=== PATIENT | male | born 1935 | race Caucasian/White ===

== ENCOUNTER → 2017-12-02 09:41 | Outpatient (CLI) | payer MEDICARE, OTHER, SELFPAY ==
--- NOTE | 2017-12-02 09:44 | DI.CT.S_ITS ---
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 TECHNIQUE: After the administration of oral and intravenous contrast, 5 mm thick sections acquired from the lung apices to the symphysis. 5 mm coronal and sagittal reformats were performed, with additional 7 mm coronal MIP reformats through the lungs. For radiation dose reduction, the following was used: automated exposure control, adjustment of mA and/or kV according to patient size. COMPARISON: [facility], CT, CHEST/ABD/PEL WITH CONTRAST, 09/20/2016, 16:04. [facility], CT, CHEST/ABD/PEL WITH CONTRAST, 05/13/2016, 10:34. [facility], [place], PET/CT SKULL BASE TO MID THIGH, 12/08/2015, 10:00. [facility], CT, ABDOMEN/PELVIS WITH CONTRAST, 11/12/2015, 16:32. FINDINGS: Image quality: Excellent. CHEST: Lungs and pleura: No acute airspace opacities. No pleural effusions or pneumothorax. Central and peripheral airways appear patent and normal in caliber. Mediastinum: Heart size is normal. No pericardial effusion. No mediastinal or hilar adenopathy by size criteria. Thoracic aorta and central pulmonary arteries are normal in size. Esophagus is normal in caliber. No hiatal hernia. Chest wall: Left chest wall Port-A-Cath is again noted. No axillary or supraclavicular adenopathy by size criteria. Thyroid gland is normal in size. ABDOMEN: Solid organs: Liver is normal in size and enhancement. Gallbladder wall thickness is normal. Biliary system is non dilated. Pancreas enhances normally. Spleen is normal in size and enhancement. No adrenal nodules. Kidneys demonstrate normal size and enhancement, without hydronephrosis. Small bilateral renal cortical cysts are incidentally noted. Peritoneum and bowel: Bowel loops demonstrate normal wall thickness and caliber. The appendix appears normal. There is mild sigmoid colon diverticulosis. No free fluid or air. Nodes and vessels: No retroperitoneal or mesenteric adenopathy by size criteria. Aorta and inferior vena cava are normal in size. Miscellaneous: No ventral hernias. PELVIS: Genitourinary: Bladder wall thickness is normal. Prostate gland is normal in overall size. Miscellaneous: No inguinal hernias or adenopathy. Bones: No suspicious bony lesions. No vertebral body compression fractures. There is lumbar spine disc degeneration. IMPRESSION: 1. No new imaging findings to suggest recurrent follicular lymphoma. 2. Mild sigmoid colon diverticulosis. Dictated by: Srinivas Wesley M.D. on 12/02/2017 at 12:56 Approved by: Srinivas Wesley M.D. on 12/02/2017 at 13:09
== END ==
PROVIDERS: PCP Internal Medicine Cardiovascular Disease; Visit Provider Nurse Practitioner Gerontology
DX: C82.90 Follicular lymphoma, unspecified, unspecified site (principal); K57.30 Diverticulosis of large intestine without perforation or abscess without bleeding; Z53.8 Procedure and treatment not carried out for other reasons
CPT/HCPCS: 71260; 74177

== ENCOUNTER 2018-06-26 09:05 | Day surgery (SDC) | payer MEDICARE, OTHER, SELFPAY ==
[2018-06-26] VITALS (9 sets, daily range): BP systolic 85–123; BP diastolic 48–72; PULSE 49–62; RESP 8–17; TEMP 36.1–36.4; O2SAT 99–100
[2018-06-26] MEDS: SODIUM CHLORIDE 0.9% 1,000 ML 200 ML IV (09:45)
[2018-06-26] MEDS: LIDOCAINE 4% SOLN 50 ML 20 ML TOP (11:31)
[2018-06-26] MEDS: TETRACAINE/BENZOCAINE/BUTAMBEN (CETACAINE) BOTTLE 1 SPRAY TOP (11:32)
--- NOTE | 2018-06-26 11:33 | PM.HP.1 ---
History of Present Illness Date Patient Seen: 06/26/18 Time Patient Seen: 11:33 Chief complaint: colonoscopy [id number] Narrative: Patient is a gentleman with a follicular lymphoma. This was diagnosed in 2016. He has undergone treatment. He had a PET scan as part of his routine follow-up and there was some abnormalities in the small and large bowel. He has been having some vague abdominal pain is not as chronic reflux I was asked to do an EGD and colonoscopy. Patient History Family & Social History Family History: Reviewed 06/26/18 by Marlo Sanderson MD Social History: household members spouse Meds Home Medications Medication Instructions Recorded Confirmed Type multivitamin [Multiple Vitamins] 1 tab PO QDAY #0 04/23/17 06/26/18 History VITAMIN D (Vitamin D3) 5,000 iu PO QDAY #0 08/13/17 06/26/18 History vitamin B complex 1 tab PO DAILY 04/27/18 06/26/18 History Allergies Allergy/AdvReac Type Severity Reaction Status Date / Time No Known Drug Allergies Allergy Verified 10/02/17 14:11 Review of Systems Review of Systems All systems reviewed & are unremarkable except as noted in HPI and below Exam Vital Signs (past 8 hours): - 06/26/18 09:29 Temperature 97.2 F L Pulse Rate 57 L Respiratory Rate 15 Blood Pressure 111/69 Pulse Oximetry 100 Oxygen Delivery Method Room Air Narrative Exam Narrative: Within cooperative gentleman no apparent distress. Lungs are clear to auscultation without rales or rhonchi. Heart regular rate and rhythm without murmur gallop. Abdomen is soft nontender without mass. Liver and spleen are not enlarged. Alert and oriented x3. Assessment & Plan Plan: Assessment/Plan Narrative: Patient with follicular lymphoma and abdominal symptoms for an EGD and colonoscopy. I have discussed the procedure and the rationale with the patient including risks of bleeding, perforation which would necessitate a major operation, failure to find remove all lesions and the potential to tattoo. They appeared to understand and wished to proceed.
--- NOTE | 2018-06-26 11:38 | PM.PREOP ---
Pre-operative Note Interval Note History & Physical reviewed/Exam performed by Physician: Yes Changes to H&P: No ASA Class (for procedural sedation): II
[2018-06-26] MEDS: fentaNYL 250 MCG/5 ML INJ IV (11:39)
[2018-06-26] MEDS: MIDAZOLAM 5 MG/5 ML VIAL IV ×2 (12:02→12:03)
--- NOTE | 2018-06-26 12:16 | PM.OP.ENDO ---
Operative Date/Time/Diagnoses Date of procedure: 06/26/18 Time of procedure: 12:16 Pre-op diagnosis: Mantle cell lymphoma. Abnormal PET scan Post-op diagnosis: same Procedure & Clinicians Study performed: EGD and colonoscopy Same procedure as scheduled: Yes Indications: Rule out GI tract issues. Surgeon: Marlo Sanderson Procedure Notes SCOAP/Timeout: Performed Procedure in detail: The patient is placed in the left lateral decubitus position after having topical anesthetic applied was oropharynx. Bite block was inserted after sedating him with fentanyl and Versed. Scope was advanced through it into the esophagus the esophagus was normal. GE junction 42 cm from the incisors. The stomach insufflated well. There were no lesions seen. The pyloric channel was patent. The duodenum was unremarkable to the 4th part. The scope was brought back into the stomach and retroflexed. The proximal stomach was unremarkable. The scope was straightened and brought out. The patient was repositioned and given additional sedation. A colonoscopy was performed. Digital exam was remarkable for or an enlarged hard prior irregular prostate. The scope was inserted and advanced through the rectum into the sigmoid, descending, transverse, and ascending colon. Patient was noted to have sigmoid diverticulosis.. The cecum was reached identified by the ileocecal valve and the appendiceal opening. The ileocecal valve was unable to be cannulated. . The scope was gradually brought out. No Polyps were found . The scope ultimately was retroflexed in the rectum. The appearance was normal except some minor scarring on old hemorrhoidal disease.. The scope was removed and the patient tolerated the procedure well. The prep was excellent. I saw no evidence of any discoloration, colon thickening, loss of normal anatomical findings or anything to suggest infiltration of the upper or lower intestinal wall. Scope withdrawal time: About 7 min Sedation minutes: 25 Findings: diverticulosis (Sigmoid) and possible cancer (Prostate) Specimen(s): none sent Complications: none Recommendations: Other recommendation (You may need to be seen by a urologist regarding her prostate) Follow up: as needed Disposition: PACU
== END 2018-06-26 13:29 | disposition home or self-care (01) ==
PROVIDERS: Visit Provider Specialist
PROC: 0DJD8ZZ Inspection of Lower Intestinal Tract, Via Natural or Artificial Opening Endoscopic (ICD-10-PCS; CPT 45378; principal; 2018-06-26 10:45)
PROC: 0DJ08ZZ Inspection of Upper Intestinal Tract, Via Natural or Artificial Opening Endoscopic (ICD-10-PCS; CPT 43235; 2018-06-26 10:45)
DX: R93.3 Abnormal findings on diagnostic imaging of other parts of digestive tract (principal); K21.9 Gastro-esophageal reflux disease without esophagitis; C83.10 Mantle cell lymphoma, unspecified site; K57.30 Diverticulosis of large intestine without perforation or abscess without bleeding; N40.0 Benign prostatic hyperplasia without lower urinary tract symptoms
CPT/HCPCS: 43235; 45378; 99152; 99153; J2250; J3010

== ENCOUNTER → 2018-09-09 09:02 | Outpatient (CLI) | payer MEDICARE, OTHER, SELFPAY ==
--- NOTE | 2018-09-09 09:04 | DI.MRI.S_ITS ---
PROCEDURE: MR PELIS WO/W CON INDICATIONS: prostate cancer TECHNIQUE: Coronal HASTE, axial T1 FSE with fat saturation, 3-plane nonbreath-hold T2 FSE. After the administration of contrast, dynamic axial, delayed axial and coronal VIBE or 2-D FLASH with fat saturation through the pelvis. Optional diffusion weighted imaging and ADC may be performed. COMPARISON: [facility], NM, NM BONE SCAN WHOLE BODY, 09/09/2018, 12:52. [facility], CT, CT CHEST ABD PEL W CON, 12/02/2017, 10:38. FINDINGS: Image quality: Diagnostic. Prostate: Gland size is 4.5 x 3.9 x 4.0 cm; ellipsoid gland volume is 37 mL. There is T1 hyperintensity within the left peripheral zone consistent blood product likely related to prior biopsy. Lesion size(s): Lesion 1: Approximately 2.2 x 2.0 x 2.3 cm. Lesion location(s) (sector): Lesion 1: Posterolateral right peripheral zone within the mid prostate to apex. Lesion description: Lesion 1: There is an oval indistinct mass with an erased charcoal sign. This demonstrates extraprostatic extension along the right posterolateral aspect of the prostate as well as likely invasion into the right seminal vesicles. T2 weighted imaging (T2WI) morphology score: Lesion 1: 5 Diffusion weighted imaging (DWI) morphology score: Lesion 1: 5 Dynamic contrast enhancement (DCE): Lesion 1: Present. Lesion PI-RADS score: Lesion 1: PI-RADS 5 Genitourinary system: Bladder wall thickness is normal. Distal ureters are non distended. Bowel and peritoneum: No pathologic free pelvic fluid. Inferior colon and small bowel loops are normal in caliber. Nodes and vessels: No pelvic or inguinal adenopathy by size criteria. Iliac vessels are normal in caliber. Soft tissues: No inguinal hernias. Bones: Marrow demonstrates normal overall signal, without suspicious lesions to suggest metastases. IMPRESSION: 1. Abnormal mass in the right posterolateral peripheral zone with imaging findings consistent with a PI-RADS 5 lesion is compatible with patient's history of prostate cancer. There is evidence of extraprostatic extension including into the right seminal vesicles. 2. No lymphadenopathy or other definite evidence of metastatic disease in the pelvis. Dictated by: Brandon Kelley M.D. on 09/09/2018 at 15:13 Approved by: Brandon Kelley M.D. on 09/09/2018 at 15:27
--- NOTE | 2018-09-09 09:04 | DI.NM.S_ITS ---
PROCEDURE: [place] BONE SCAN WHOLE BODY RADIOPHARMACEUTICAL: 19.9 mCi Tc-99m MDP IV. INDICATIONS: prostate cancer TECHNIQUE: Delayed whole-body scintigrams were obtained approximately 3-4 hours after intravenous injection of radiotracer. Anterior and posterior views were acquired from vertex to feet. Additional left and right oblique views of the pelvis were obtained. COMPARISON: [facility], MR, MR PELVIS WO/W CON, 09/09/2018, 10:35. [facility], NM, PET/CT SKULL BASE TO MID THIGH, 12/08/2015, 10:00. [facility], CT, CT CHEST ABD PEL W CON, 12/02/2017, 10:38. FINDINGS: There is focal uptake in the left anterior chest, most likely the chest port (tracer was injected through the chest port). No lesions are identified in skull, sternum, clavicles, scapulae, ribs, bony pelvis, and visualized shafts of the long bones. Increased uptake in maxilla and mandible is likely related to dental disease. There is low level increased uptake in cervical, thoracic and lumbar spine with distribution indistinguishable from degenerative disc and facet disease; early metastasis to spine could be obscured by degenerative changes. There are foci of increased periarticular activity involving shoulders and left wrist, compatible with degenerative/arthritic changes. Bladder is distended. There is normal soft tissue uptake. IMPRESSION: 1. No definitive scintigraphic findings to suggest metastatic disease. 2. Increased uptake in the left anterior chest is likely the injection site. 3. Distended bladder suggesting urinary retention. Recommend clinical correlation. Dictated by: Jeniffer Rios M.D. on 09/09/2018 at 14:12 Approved by: Jeniffer Rios M.D. on 09/09/2018 at 18:18
== END ==
PROVIDERS: PCP Family Medicine; Visit Provider Internal Medicine Hematology & Oncology
DX: C61 Malignant neoplasm of prostate (principal)
CPT/HCPCS: 72197; 78306; A9503; A9579

== ENCOUNTER 2020-03-06 09:44 | Day surgery (SDC) | payer MEDICARE, OTHER, SELFPAY ==
[2020-03-06] VITALS (8 sets, daily range): BP systolic 124–153; BP diastolic 62–78; PULSE 50–67; RESP 11–17; TEMP 36.3; O2SAT 96–100; BMI 21.2
[2020-03-06] MEDS: LACTATED RINGERS 1,000 ML 42 ML IV (10:32)
--- NOTE | 2020-03-06 11:25 | PM.HP.1 ---
History of Present Illness History of Present Illness Date Patient Seen: 03/06/20 Time Patient Seen: 11:26 Chief complaint: SDC Narrative: The patient is a gentleman who is prostate cancer. He completed chemotherapy in 2018. His Port-A-Cath is no longer working. He is here for removal. The intention is not to replace it. Patient History Medical History (Updated 03/06/20 @ 11:27 by Marlo Sanderson MD) Lymphoma (Acute) Port-A-Cath in place (Acute) Prostate cancer (Acute) Radiation proctitis (Acute) Family & Social History Social History: household members spouse Tobacco & Substance use: Smoking Status Never smoker alcohol intake never Substance Use Type does not use Meds Home Medications and Allergies Home Medications Medication Instructions Recorded Confirmed Type multivitamin [Multiple Vitamins] 1 tab PO QDAY #0 04/23/17 03/06/20 History cholecalciferol (vitamin D3) 125 mcg PO DAILY #0 08/13/17 03/06/20 History [Vitamin D3] vitamin B complex 1 tab PO DAILY 04/27/18 03/06/20 History ascorbic acid (vitamin C) [Vitamin 500 mg PO TID 12/14/19 03/06/20 History C] loperamide 2 mg PO Q6H PRN 12/14/19 03/06/20 History Allergies Allergy/AdvReac Type Severity Reaction Status Date / Time No Known Drug Allergies Allergy Verified 10/02/17 14:11 Review of Systems Review of Systems Narrative: No heart or breathing problems. No abdominal pain. He does have proctitis which is causing some difficulty with his eating habits. He is under evaluation [facility] for this. Exam Vital Signs (past 8 hours): - 03/06/20 10:22 Temperature 97.4 F L Pulse Rate 59 L Respiratory Rate 16 Blood Pressure 124/74 Pulse Oximetry 100 Oxygen Delivery Method Room Air Narrative Exam Narrative: Cooperative very thin gentleman no apparent distress his lungs are clear to auscultation no rales or rhonchi heart regular rate and rhythm no murmur gallop abdomen is soft doughy without mass or tenderness. Patient is alert and oriented. Assessment & Plan Assessment & Plan narrative: Patient is a gentleman with a nonfunctional Port-A-Cath that is no longer in use. He is here for removal. I have discussed the procedure including risks of bleeding infection and scarring with him. He appears to understand wishes to proceed
--- NOTE | 2020-03-06 11:38 | PM.PREOP ---
Pre-operative Note COVID-19 COVID-19 status: Negative Result date/Date tested (Pos, Neg/Pending): 03/03/20 Interval Note History & Physical reviewed/Exam performed by Physician: Yes Changes to H&P: No
[2020-03-06] MEDS: CEFAZOLIN 1 GM VIAL IV (11:52)
[2020-03-06] MEDS: BUPIVACAINE 0.5% (PF) VIAL 30 ML INJ (12:13)
--- NOTE | 2020-03-06 12:21 | P.OP_ITS ---
Operative Date/Time/Diagnoses Date of procedure: 03/06/20 Time of procedure: 12:21 Pre-op diagnosis: Port-A-Cath no longer in use. History of prostate cancer. Post-op diagnosis: same Procedure & Clinicians Procedure: Removal Port-A-Cath Same procedure as scheduled: Yes Indications: Nonfunctioning Port-A-Cath no longer needed. Surgeon: Marlo Sanderson Click Yes if Unassisted: Yes Anesthesia Type: General Operative Notes Findings: Port removed in its entirety Closure Type: primary Specimen(s): none sent Prosthetic devices, grafts, tissues, transplants, or devices: Removed port/catheter Estimated Blood Loss (mL): 5 Blood products transfused: none Procedure in detail: The patient was placed supine on the operating table underwent general LMA anesthesia. Prepped and draped in the usual fashion. Loc al anesthetic was infiltrated in a field block fashion around the port. Incision was made through the old scar and carried down to the level of the catheter. Catheter was from surrounding structures and a pursestring was placed around it. The catheter was removed and the pursestring tied closing off the canal. The port was then removed from its pocket using principally cautery. Bleeding was controlled with cautery. The subcu was closed with 3 0 Vicryl. The skin was closed a running 4 0 Vicryl subcuticular stitch and Steri- Strips. Dressing was applied the patient tolerated the procedure well. Complications: none Post-operative Condition: stable Disposition: PACU
--- NOTE | 2020-03-06 12:54 | SUR.PHASEI ---
Patient sitting up, awake but drowsy. Denies pain or nausea. Grape juice provided.
== END 2020-03-06 13:42 | disposition home or self-care (01) ==
PROVIDERS: PCP Family Medicine; Referring Provider Family Medicine; Visit Provider Specialist
PROC: (CPT 36590; principal; 2020-03-06 11:45)
DX: Z45.2 Encounter for adjustment and management of vascular access device (principal); Z85.46 Personal history of malignant neoplasm of prostate
CPT/HCPCS: 36590; J0690; J1100; J2405; J2704

== ENCOUNTER → 2021-02-15 09:07 | Outpatient (CLI) | payer MEDICARE, OTHER, SELFPAY ==
[2021-02-15 20:14] LABS: Prostate Specific Antigen < 0.064 ng/mL (0.10-4.00)
== END ==
PROVIDERS: PCP Family Medicine; Visit Provider Radiology Radiation Oncology
DX: C61 Malignant neoplasm of prostate (principal)
CPT/HCPCS: 84153

== ENCOUNTER → 2021-02-19 08:40 | Outpatient (CLI) | payer MEDICARE, OTHER, SELFPAY ==
[2021-02-19 21:08] LABS: COVID19 - ORCAS (NP or Nasal) Negative (Negative)
== END ==
PROVIDERS: PCP Family Medicine; Visit Provider Family Medicine
DX: Z20.822 Contact with and (suspected) exposure to COVID-19 (principal)
CPT/HCPCS: C9803; U0003

== ENCOUNTER → 2021-03-14 11:35 | Outpatient (CLI) | payer MEDICARE, OTHER, SELFPAY ==
[2021-03-14 19:09] LABS: Alanine Aminotransferase 16 IU/L (<50); Albumin 3.7 g/dL (3.5-5.0); Albumin Globulin Ratio 1.6 (1.0-2.8); Alkaline Phosphatase 85 U/L (38-126); Aspartate Aminotransferase 45 IU/L (17-59); BUN Creatinine Ratio 27.7 (6-22); Bilirubin Total 0.4 mg/dL (0.2-1.3); Blood Urea Nitrogen 18 mg/dL (9-20); Calcium 9.3 mg/dL (8.4-10.2); Carbon Dioxide 34 mmol/L (22-32); Chloride 99 mmol/L (98-107); Estimated Glomerular Filt Rate > 60.0 mL/min (>60); Globulin 2.3 g/dL (1.7-4.1); Glucose 83 mg/dL (80-110); HEMOLYSIS 23 (0-50); Potassium 4.4 mmol/L (3.4-5.1); Sodium 137 mmol/L (137-145)
== END ==
PROVIDERS: PCP Physician Assistant; Referring Provider Physician Assistant; Visit Provider Physician Assistant
DX: R60.9 Edema, unspecified (principal)
CPT/HCPCS: 80053

== ENCOUNTER → 2021-03-28 12:08 | Outpatient (CLI) | payer MEDICARE, OTHER, SELFPAY ==
[2021-03-28 18:56] LABS: Add Manual Diff / Slide Review NO; Basophils Absolute Auto 0 /uL (0-100); Basophils Percent Auto 0.3 % (0-2); Eosinophils Absolute Auto 100 /uL (0-450); Eosinophils Percent Auto 1.2 % (2-4); Hematocrit 38.1 % (41-53); Hemoglobin 12.5 g/dL (13.5-17.5); Lymphocytes Absolute Auto 1600 /uL (1100-4500); Lymphocytes Percent Auto 25.7 % (25-40); Mean Corpuscular HGB Conc 32.8 % (30-36); Mean Corpuscular Hemoglobin 31.3 PG (26-34); Mean Corpuscular Volume 95.5 fL (80-100); Monocytes Absolute Auto 600 /uL (0-900); Monocytes Percent Auto 9.3 % (3-14); Neutrophils Absolute Auto 3900 /uL (1500-7000); Neutrophils Percent Auto 63.5 % (50-75); Platelet Count 171 X10^3/uL (150-400); Red Blood Cell Count 3.99 X10^6/uL (4.5-5.9); Red Cell Distribution Width 13.7 % (11.6-14.8); White Blood Cell Count 6.1 X10^3/uL (4.5-11.0)
[2021-03-28 19:00] LABS: Alanine Aminotransferase 19 IU/L (<50); Albumin 3.9 g/dL (3.5-5.0); Albumin Globulin Ratio 1.7 (1.0-2.8); Alkaline Phosphatase 90 U/L (38-126); Aspartate Aminotransferase 47 IU/L (17-59); BUN Creatinine Ratio 25.7 (6-22); Bilirubin Total 0.4 mg/dL (0.2-1.3); Blood Urea Nitrogen 18 mg/dL (9-20); Calcium 9.4 mg/dL (8.4-10.2); Carbon Dioxide 35 mmol/L (22-32); Chloride 98 mmol/L (98-107); Estimated Glomerular Filt Rate > 60.0 mL/min (>60); Globulin 2.3 g/dL (1.7-4.1); Glucose 85 mg/dL (80-110); HEMOLYSIS < 15 (0-50); Potassium 4.2 mmol/L (3.4-5.1); Sodium 140 mmol/L (137-145); Total Protein 6.2 g/dL (6.3-8.2)
[2021-03-28 19:08] LABS: NT-proBNP (BNP-Adult 18+) 207 pg/mL (<450)
== END ==
PROVIDERS: PCP Physician Assistant; Referring Provider Family Medicine; Visit Provider Family Medicine
DX: C82.95 Follicular lymphoma, unspecified, lymph nodes of inguinal region and lower limb (principal); R60.9 Edema, unspecified; R94.4 Abnormal results of kidney function studies
CPT/HCPCS: 80053; 83880; 85025

== ENCOUNTER → 2021-08-17 11:02 | Outpatient (CLI) | payer MEDICARE, OTHER, SELFPAY ==
[2021-08-17 20:32] LABS: Prostate Specific Antigen < 0.064 ng/mL (0.10-4.00)
== END ==
PROVIDERS: Radiology Radiation Oncology; PCP Physician Assistant
DX: C61 Malignant neoplasm of prostate (principal)
CPT/HCPCS: 84153

== ENCOUNTER → 2021-09-03 11:24 | Outpatient (CLI) | payer MEDICARE, OTHER, SELFPAY ==
[2021-09-03 14:19] LABS: COVID19 -Nasal RAPID Negative (Negative)
== END ==
PROVIDERS: PCP Physician Assistant; Visit Provider Family Medicine Sleep Medicine
DX: Z20.822 Contact with and (suspected) exposure to COVID-19 (principal)
CPT/HCPCS: 87635; C9803

== ENCOUNTER 2021-09-04 10:30 | Day surgery (SDC) | payer MEDICARE, OTHER, SELFPAY ==
[2021-09-04 10:55] VITALS: BP 133/72; PULSE 54; RESP 18; TEMP 36; O2SAT 98; BMI 21.9
[2021-09-04] MEDS: PROPARACAINE 0.5% OPHTH SOL 2 DROPS EYE-OP (11:00)
[2021-09-04] MEDS: CATARACT EYE COMPOUND (10 DROPS/SYRINGE) 3 DROPS EYE-OP (11:00)
--- NOTE | 2021-09-04 12:12 | SUR.OPER ---
Supine on eye stretcher, head on extension cradle secured with tape. Arms tucked at sides with blanket. Pillow under knees.
--- NOTE | 2021-09-04 12:15 | PM.PREOP ---
Pre-operative Note Interval Note History & Physical reviewed/Exam performed by Physician: Yes Changes to H&P: No
--- NOTE | 2021-09-04 12:15 | PM.OP.1 ---
Operative Date/Time/Diagnoses Pre-op diagnosis: Nuclear cataract right eye Procedure & Clinicians Procedure: Cataract Surgery Same procedure as scheduled: Yes Surgeon: Kevin Rivera Anesthesia Type: MAC +/- and Sedation Operative Notes Procedure in detail: Patient brought to the operating suite. Tetracaine drops placed in the right eye. Patient was prepped and draped in sterile manner. Wire lid speculum was placed in the eye. Betadine drops were placed on the eye. This was irrigated. Lidocaine jelly was placed on the eye. A paracentesis port was created with a side-port blade. 0.1 mL 1% preservative free lidocaine was injected into the anterior chamber. The anterior chamber was deepened with viscoelastic. 2.6 mm keratome was used to create a temporal clear corneal incision. Cystotome and Utrata forceps were used to create continuous tear capsulorrhexis. Balanced salt solution was used to hydro dissect the nucleus. The phacoemulsification handpiece was inserted and the nucleus was removed using the stop and chop technique. The irrigation aspiration handpiece was inserted and the remaining cortex was removed. Anterior chamber was deepened with viscoelastic. An Heart DIB00 intraocular lens with a power of 17.0 was injected into the capsular bag. Irrigation aspiration handpiece was inserted and the remaining viscoelastic was removed. Incision was hydrated with balanced salt solution and found to be leak free with pressure with Weck-Peg sponges. 0.1 mL Vigamox injected anterior chamber. 0.3 mL Kenalog 10 mg was injected subconjunctivally. Lid speculum was removed. The patient left the operating room in excellent condition. Complications: none Post-operative Condition: stable Disposition: same day surgery
[2021-09-04] MEDS: MOXIFLOXACIN INJ 4 MG/0.8 ML VIAL 0.5 MG EYE-OP (12:35)
[2021-09-04] MEDS: HYALURONATE SODIUM 30 MG-10 MG/ML SYRINGES 1 BOX INTRAOCULA (12:35)
[2021-09-04] MEDS: TRIAMCINOLONE 50 MG/5 ML VIAL INJ (12:36)
[2021-09-04] MEDS: PHENYLEPHRINE/LIDOCAINE VIAL (OR) 0.2 ML EYE-OP (12:36)
[2021-09-04] MEDS: BALANCED SALT IRRIG SOLN NO.2 500 ML, EPINEPHrine 1 MG IRR (12:36)
[2021-09-04] MEDS: LIDOCAINE 2% (GLYDO) 6 ML GEL TOP (12:37)
[2021-09-04] MEDS: TETRACAINE 0.5% OPHTH DROPS 4 ML 2 DROPS EYE-OP (12:37)
[2021-09-04 12:50] VITALS: BP 107/65; PULSE 55; RESP 16; TEMP 36.2; O2SAT 98
== END 2021-09-04 13:19 | disposition home or self-care (01) ==
PROVIDERS: PCP Physician Assistant; Referring Provider Ophthalmology; Visit Provider Ophthalmology
PROC: (CPT 66984; principal; 2021-09-04 12:15)
DX: H25.11 Age-related nuclear cataract, right eye (principal)
CPT/HCPCS: 66984; J0171; J2250; J3010; J3301

== ENCOUNTER → 2022-02-27 12:03 | Outpatient (CLI) | payer MEDICARE, OTHER, SELFPAY ==
[2022-02-27 23:08] LABS: Prostate Specific Antigen < 0.064 ng/mL (0.10-4.00)
== END ==
PROVIDERS: PCP Physician Assistant; Visit Provider Radiology Radiation Oncology
DX: C61 Malignant neoplasm of prostate (principal)
CPT/HCPCS: 84153

== ENCOUNTER → 2022-05-09 10:57 | Outpatient (CLI) | payer MEDICARE, OTHER, SELFPAY ==
[2022-05-09 18:59] LABS: Add Manual Diff / Slide Review NO; Basophils Absolute Auto 0 /uL (0-100); Basophils Percent Auto 0.5 % (0-2); Eosinophils Absolute Auto 100 /uL (0-450); Eosinophils Percent Auto 1.8 % (2-4); Hematocrit 36.7 % (41-53); Hemoglobin 12.4 g/dL (13.5-17.5); Lymphocytes Absolute Auto 1500 /uL (1100-4500); Lymphocytes Percent Auto 29.5 % (25-40); Mean Corpuscular HGB Conc 33.8 % (30-36); Mean Corpuscular Hemoglobin 32.1 PG (26-34); Mean Corpuscular Volume 94.7 fL (80-100); Monocytes Absolute Auto 400 /uL (0-900); Monocytes Percent Auto 8.7 % (3-14); Neutrophils Absolute Auto 3100 /uL (1500-7000); Neutrophils Percent Auto 59.5 % (50-75); Platelet Count 153 X10^3/uL (150-400); Red Blood Cell Count 3.87 X10^6/uL (4.5-5.9); Red Cell Distribution Width 14.1 % (11.6-14.8); White Blood Cell Count 5.2 X10^3/uL (4.5-11.0)
[2022-05-09 19:11] LABS: BUN Creatinine Ratio 30.2 (6-22); Blood Urea Nitrogen 19 mg/dL (9-20); Calcium 9.2 mg/dL (8.4-10.2); Carbon Dioxide 32 mmol/L (22-32); Chloride 98 mmol/L (98-107); Cholesterol 137 mg/dL (140-199); Estimated Glomerular Filt Rate > 60 mL/min (>60); Glucose 91 mg/dL (80-110); HDL Cholesterol 47 mg/dL (40-60); HEMOLYSIS < 15 (0-50); LDL Cholesterol Calculated 79 mg/dL (<100); Potassium 4.4 mmol/L (3.4-5.1); Sodium 136 mmol/L (137-145); Triglycerides 55 mg/dL (35-150)
[2022-05-09 19:40] LABS: Prostate Specific Antigen < 0.064 ng/mL (0.10-4.00)
== END ==
PROVIDERS: PCP Physician Assistant; Visit Provider Family Medicine
DX: K21.9 Gastro-esophageal reflux disease without esophagitis (principal); Z13.220 Encounter for screening for lipoid disorders; C61 Malignant neoplasm of prostate; D64.9 Anemia, unspecified; R60.0 Localized edema; Z13.1 Encounter for screening for diabetes mellitus
CPT/HCPCS: 80048; 80061; 84153; 85025

== ENCOUNTER → 2022-08-05 11:28 | Outpatient (CLI) | payer MEDICARE, OTHER, SELFPAY ==
[2022-08-05 21:20] LABS: Add Manual Diff / Slide Review NO; Basophils Absolute Auto 0 /uL (0-100); Basophils Percent Auto 0.6 % (0-2); Eosinophils Absolute Auto 100 /uL (0-450); Eosinophils Percent Auto 1.8 % (2-4); Hemoglobin 11.7 g/dL (13.5-17.5); Lymphocytes Absolute Auto 2200 /uL (1100-4500); Lymphocytes Percent Auto 35.7 % (25-40); Mean Corpuscular HGB Conc 34.3 % (30-36); Mean Corpuscular Hemoglobin 32.5 PG (26-34); Mean Corpuscular Volume 94.8 fL (80-100); Monocytes Absolute Auto 600 /uL (0-900); Monocytes Percent Auto 9.5 % (3-14); Neutrophils Absolute Auto 3300 /uL (1500-7000); Neutrophils Percent Auto 52.4 % (50-75); Platelet Count 181 X10^3/uL (150-400); Red Blood Cell Count 3.58 X10^6/uL (4.5-5.9); Red Cell Distribution Width 13.9 % (11.6-14.8); White Blood Cell Count 6.2 X10^3/uL (4.5-11.0)
[2022-08-05 23:10] LABS: HEMOLYSIS < 15 (0-50); Iron 76 ug/dL (49-181); Lactate Dehydrogenase 172 U/L (120-246)
[2022-08-05 23:25] LABS: Percent Iron Saturation 24 % (20-50); Total Iron Binding Capacity 321 ug/dL (261-462); Transferrin 216 mg/dL (206-381)
[2022-08-05 23:41] LABS: TSH w/ Reflex to FT4 1.29 uIU/mL (0.47-4.68)
[2022-08-06 00:04] LABS: Vitamin B12 453 pg/mL (239-931)
[2022-08-09 15:41] LABS: Beta-2-Microglobulin 2.8 mg/L (0.6-2.4)
[2022-08-20 19:08] LABS: Percent Free Testosterone 0.85 % (1.50-4.20); Testosterone Free 0.19 ng/dL (5.00-21.00); Testosterone Total 22.6 ng/dL (264.0-916.0)
== END ==
PROVIDERS: PCP Physician Assistant; Visit Provider Family Medicine
DX: K21.9 Gastro-esophageal reflux disease without esophagitis (principal); D64.9 Anemia, unspecified; C82.90 Follicular lymphoma, unspecified, unspecified site; R53.83 Other fatigue
CPT/HCPCS: 82232; 82607; 83540; 83550; 83615; 84402; 84403; 84443; 85025

== ENCOUNTER → 2023-05-08 09:58 | Outpatient (CLI) | payer MEDICARE, OTHER, SELFPAY ==
[2023-05-08 21:10] LABS: Add Manual Diff / Slide Review NO; Basophils Absolute Auto 0 /uL (0-100); Basophils Percent Auto 0.6 % (0-2); Eosinophils Absolute Auto 100 /uL (0-450); Eosinophils Percent Auto 1.8 % (2-4); Hematocrit 37.1 % (41-53); Hemoglobin 12.7 g/dL (13.5-17.5); Lymphocytes Absolute Auto 2200 /uL (1100-4500); Lymphocytes Percent Auto 35.2 % (25-40); Mean Corpuscular HGB Conc 34.1 % (30-36); Mean Corpuscular Hemoglobin 32.3 PG (26-34); Mean Corpuscular Volume 94.6 fL (80-100); Monocytes Absolute Auto 500 /uL (0-900); Monocytes Percent Auto 8.7 % (3-14); Neutrophils Absolute Auto 3300 /uL (1500-7000); Neutrophils Percent Auto 53.7 % (50-75); Platelet Count 165 X10^3/uL (150-400); Red Blood Cell Count 3.92 X10^6/uL (4.5-5.9); Red Cell Distribution Width 14.1 % (11.6-14.8); White Blood Cell Count 6.2 X10^3/uL (4.5-11.0)
[2023-05-08 23:42] LABS: Cortisol AM (Before 10AM) 13.6 ug/dL (4.46-22.7)
[2023-05-13 14:26] LABS: Beta-2-Microglobulin 2.5 mg/L (0.6-2.4)
== END ==
PROVIDERS: PCP Physician Assistant; Visit Provider Family Medicine
DX: D64.9 Anemia, unspecified (principal); C82.90 Follicular lymphoma, unspecified, unspecified site; R53.83 Other fatigue
CPT/HCPCS: 82232; 82533; 85025

== ENCOUNTER → 2023-07-17 12:01 | Outpatient (CLI) | payer MEDICARE, OTHER, SELFPAY ==
[2023-07-17 21:11] LABS: Vitamin D 25 Hydroxy (D3) 50.4 ng/mL (30.0-100.0)
[2023-07-17 21:25] LABS: TSH w/ Reflex to FT4 1.16 uIU/mL (0.47-4.68)
[2023-07-17 21:35] LABS: Vitamin B12 387 pg/mL (239-931)
== END ==
PROVIDERS: PCP Family Medicine; Visit Provider Family Medicine
DX: E55.9 Vitamin D deficiency, unspecified (principal); R53.83 Other fatigue; D64.9 Anemia, unspecified
CPT/HCPCS: 82306; 82607; 84443

== ENCOUNTER → 2023-09-16 15:18 | Outpatient (CLI) | payer MEDICARE, OTHER, SELFPAY ==
[2023-09-18 21:07] LABS: Fecal Immunochemical Test Negative (Negative)
== END ==
PROVIDERS: PCP Family Medicine; Visit Provider Family Medicine
DX: Z12.11 Encounter for screening for malignant neoplasm of colon (principal)
CPT/HCPCS: 82274

== ENCOUNTER → 2023-10-30 09:05 | Outpatient (CLI) | payer MEDICARE, OTHER, SELFPAY ==
[2023-10-30 21:38] LABS: Add Manual Diff / Slide Review NO; Basophils Absolute Auto 0 /uL (0-100); Basophils Percent Auto 0.5 % (0-2); Eosinophils Absolute Auto 100 /uL (0-450); Hematocrit 35.2 % (41-53); Hemoglobin 12.1 g/dL (13.5-17.5); Lymphocytes Absolute Auto 1700 /uL (1100-4500); Lymphocytes Percent Auto 33.7 % (25-40); Mean Corpuscular HGB Conc 34.3 % (30-36); Mean Corpuscular Hemoglobin 32.8 PG (26-34); Mean Corpuscular Volume 95.6 fL (80-100); Monocytes Absolute Auto 500 /uL (0-900); Monocytes Percent Auto 8.9 % (3-14); Neutrophils Absolute Auto 2800 /uL (1500-7000); Neutrophils Percent Auto 54.9 % (50-75); Platelet Count 152 X10^3/uL (150-400); Red Blood Cell Count 3.69 X10^6/uL (4.5-5.9); Red Cell Distribution Width 14.1 % (11.6-14.8); White Blood Cell Count 5.1 X10^3/uL (4.5-11.0)
[2023-10-30 22:39] LABS: Blood Urea Nitrogen 20 mg/dL (9-20); Calcium 8.7 mg/dL (8.4-10.2); Carbon Dioxide 31 mmol/L (22-32); Chloride 102 mmol/L (98-107); Cholesterol 120 mg/dL (140-199); Estimated Glomerular Filt Rate > 60 mL/min (>60); Glucose 92 mg/dL (80-110); HDL Cholesterol 52 mg/dL (40-60); HEMOLYSIS < 15 (0-50); LDL Cholesterol Calculated 59 mg/dL (<100); Potassium 4.1 mmol/L (3.4-5.1); Sodium 137 mmol/L (137-145); Triglycerides 43 mg/dL (35-150)
[2023-10-30 23:23] LABS: Prostate Specific Antigen Scrn < 0.064 ng/mL (0.1-4.0)
[2023-10-30 23:27] LABS: Vitamin B12 418 pg/mL (239-931)
== END ==
PROVIDERS: PCP Family Medicine; Visit Provider Family Medicine
DX: Z13.6 Encounter for screening for cardiovascular disorders (principal); Z13.220 Encounter for screening for lipoid disorders; Z12.5 Encounter for screening for malignant neoplasm of prostate; K62.7 Radiation proctitis; C61 Malignant neoplasm of prostate; C82.90 Follicular lymphoma, unspecified, unspecified site; D64.9 Anemia, unspecified
CPT/HCPCS: 80048; 80061; 82607; 85025; G0103

== ENCOUNTER → 2024-01-07 13:36 | Outpatient (CLI) | payer MEDICARE, OTHER, SELFPAY ==
[2024-01-07 22:18] LABS: Add Manual Diff / Slide Review NO; Basophils Absolute Auto 0 /uL (0-100); Basophils Percent Auto 0.3 % (0-2); Eosinophils Absolute Auto 100 /uL (0-450); Eosinophils Percent Auto 1.9 % (2-4); Hematocrit 34.2 % (41-53); Hemoglobin 11.7 g/dL (13.5-17.5); Lymphocytes Absolute Auto 2300 /uL (1100-4500); Lymphocytes Percent Auto 28.8 % (25-40); Mean Corpuscular HGB Conc 34.2 % (30-36); Mean Corpuscular Volume 96.6 fL (80-100); Monocytes Absolute Auto 700 /uL (0-900); Monocytes Percent Auto 8.9 % (3-14); Neutrophils Absolute Auto 4700 /uL (1500-7000); Neutrophils Percent Auto 60.1 % (50-75); Platelet Count 252 X10^3/uL (150-400); Red Blood Cell Count 3.54 X10^6/uL (4.5-5.9); Red Cell Distribution Width 13.6 % (11.6-14.8); White Blood Cell Count 7.8 X10^3/uL (4.5-11.0)
[2024-01-07 22:36] LABS: Alanine Aminotransferase 19 IU/L (<50); Albumin 3.5 g/dL (3.5-5.0); Albumin Globulin Ratio 1.5 (1.0-2.8); Alkaline Phosphatase 80 U/L (38-126); Aspartate Aminotransferase 39 IU/L (17-59); BUN Creatinine Ratio 22.5 (6-22); Bilirubin Total 0.4 mg/dL (0.2-1.3); Blood Urea Nitrogen 16 mg/dL (9-20); Calcium 8.9 mg/dL (8.4-10.2); Carbon Dioxide 32 mmol/L (22-32); Chloride 99 mmol/L (98-107); Estimated Glomerular Filt Rate > 60 mL/min (>60); Globulin 2.4 g/dL (1.7-4.1); Glucose 103 mg/dL (80-110); HEMOLYSIS 15 (0-50); Potassium 4.3 mmol/L (3.4-5.1); Sodium 135 mmol/L (137-145); Total Protein 5.9 g/dL (6.3-8.2)
== END ==
PROVIDERS: PCP Family Medicine; Visit Provider Family Medicine
DX: R19.7 Diarrhea, unspecified (principal)
CPT/HCPCS: 80053; 85025

== ENCOUNTER → 2024-12-31 09:26 | Outpatient (CLI) | payer MEDICARE, OTHER, SELFPAY ==
--- NOTE | 2024-12-31 09:29 | DI.US.S_ITS ---
PROCEDURE: US ABDOMEN LIMITED INDICATIONS: LEFT UPPER QUADRANT PAIN WORSE WITH BENDING/WALKING TECHNIQUE: Real-time focused scanning was performed of the abdomen, with image documentation. COMPARISON: CT, CT CHEST ABD PEL W CON, 12/02/2017, 10:38. FINDINGS: Spleen length is normal at 9 cm. Left kidney is normal at 9.9 cm with cortical thickness normal at 1.5 cm. Scattered left renal cysts are present, largest measuring up to 1.4 cm. IMPRESSION: By ultrasound no source of left upper quadrant pain is found. Follow-up by contrast-enhanced CT may become necessary depending on the clinical status. Dictated by: Jadiel Jamison M.D. on 12/31/2024 at 15:48 Approved by: Jadiel Jamison M.D. on 12/31/2024 at 15:50
[2024-12-31 11:57] LABS: Add Manual Diff / Slide Review NO; Hematocrit 33.5 % (41-53); Hemoglobin 11.7 g/dL (13.5-17.5); Lymphocytes Absolute Auto 2200 /uL (1100-4500); Mean Corpuscular HGB Conc 34.9 % (30-36); Mean Corpuscular Hemoglobin 32.8 PG (26-34); Mean Corpuscular Volume 94.0 fL (80-100); Platelet Count 200 X10^3/uL (150-400)
[2024-12-31 12:14] LABS: HEMOLYSIS < 15 (0-50); Iron 46 ug/dL (49-181)
[2024-12-31 12:19] LABS: Alanine Aminotransferase 18 IU/L (<50); Albumin 4.1 g/dL (3.5-5.0); Albumin Globulin Ratio 1.9 (1.0-2.8); Alkaline Phosphatase 133 U/L (38-126); Blood Urea Nitrogen 20 mg/dL (9-20); Calcium 9.2 mg/dL (8.4-10.2); Carbon Dioxide 29 mmol/L (22-32); Chloride 97 mmol/L (98-107); Estimated Glomerular Filt Rate > 60 mL/min (>60); Globulin 2.2 g/dL (1.7-4.1); Glucose 90 mg/dL (70-99); HEMOLYSIS < 15 (0-50); Potassium 4.3 mmol/L (3.4-5.1); Sodium 133 mmol/L (137-145); Total Protein 6.3 g/dL (6.3-8.2)
[2024-12-31 12:29] LABS: Percent Iron Saturation 15 % (20-50); Total Iron Binding Capacity 317 ug/dL (261-462); Transferrin 249 mg/dL (206-381)
[2024-12-31 12:31] LABS: NT-proBNP (BNP-Adult 18+) 389 pg/mL (<450); Troponin I < 0.012 ng/mL (0.01-0.034)
[2024-12-31 12:52] LABS: Prostate Specific Antigen < 0.064 ng/mL (0.10-4.00)
[2024-12-31 13:10] LABS: Vitamin B12 727 pg/mL (239-931)
== END ==
PROVIDERS: PCP Family Medicine; Referring Provider Family Medicine; Visit Provider Family Medicine
DX: C61 Malignant neoplasm of prostate (principal); C82.90 Follicular lymphoma, unspecified, unspecified site; N28.1 Cyst of kidney, acquired; R10.12 Left upper quadrant pain; R06.02 Shortness of breath; D64.9 Anemia, unspecified
CPT/HCPCS: 36415; 76705; 80053; 82607; 83540; 83550; 83880; 84153; 84484; 85025

== ENCOUNTER → 2025-02-16 11:14 | Outpatient (CLI) | payer MEDICARE, OTHER, SELFPAY ==
[2025-02-16 12:24] LABS: Add Manual Diff / Slide Review NO; Hematocrit 33.4 % (41-53); Hemoglobin 11.4 g/dL (13.5-17.5); Lymphocytes Absolute Auto 2400 /uL (1100-4500); Mean Corpuscular HGB Conc 34.2 % (30-36); Mean Corpuscular Hemoglobin 31.8 PG (26-34); Mean Corpuscular Volume 93.0 fL (80-100); Platelet Count 200 X10^3/uL (150-400)
--- NOTE | 2025-02-16 12:40 | DI.RAD.S_ITS ---
PROCEDURE: XR DEXA AXIAL SKELETON INDICATIONS: T11 compression fracture COMPARISON: None. FINDINGS: Lumbar Spine: Bone mineral density 0.882 g/cm2, T score -1.4. Left Femoral Neck: Bone mineral density 0.544 g/cm2, T score -2.7. Left Hip: Bone mineral density 0.671 g/cm2, T score -2.2. Fracture Risk Calculation (when applicable): 10-year fracture risk of a major osteoporotic fracture 11 percent and of a hip fracture 5.0 percent. (T score greater or equal to -1.0 to: NORMAL) (T score from -1.1 to -2.4: OSTEOPENIA) (T score less than or equal to -2.5: OSTEOPOROSIS) IMPRESSION: Osteoporosis--- recommend repeat DEXA in 2 years or less for reassessment of response to treatment. Follow-up guidelines as follows: Osteoporosis: Consider a repeat DEXA and Vertebral Fracture Assessment (VFA) exam in 2 years or sooner if medically necessary, to reassess this patient's status. Osteopenia: Consider a repeat DEXA in 2-3 years to reassess this patient's status, or if there is a new clinical indication. Normal: Consider a repeat DEXA in 5 years or sooner, or if there is a new clinical indication. All treatment decisions require clinical judgment and consideration of individual patient factors, including patient preferences, comorbidities, previous drug use, risk factors not captured in the FRAX model (e.g., frailty, falls, vitamin D deficiency, increased bone turnover, interval significant decline in bone density ) and possible under- or over-estimation of fracture risk by FRAX. In addition, the NOF Guide recommends that FDA-approved medical therapies be considered in postmenopausal women and men age >= 50 years with a: * Hip or vertebral (clinical or morphometric) fracture * T-score of <=-2.5 at the spine or hip * Ten-year fracture probability by FRAX of >= 3% for hip fracture or >=20% for major osteoporotic fracture. Dictated by: Ayaan Schilling M.D. on 02/16/2025 at 19:21 Approved by: Ayaan Schilling M.D. on 02/16/2025 at 19:23
--- NOTE | 2025-02-16 12:40 | DI.MRI.S_ITS ---
PROCEDURE: MR LUMBAR SPINE WO CON INDICATIONS: Low back pain TECHNIQUE: Noncontrast sagittal T1 spin echo and T2 fast echo, sagittal STIR, and T2 fast spin echo through the lumbar spine. In cases with scoliosis, additional coronal T2 fast spin echo may be performed. COMPARISON: [facility], CT, CT ABDOMEN PELVIS W CON, 01/20/2025, 10:15. (Additional prior imaging is not available for review from the archive at the time of this dictation.) FINDINGS: Image quality: This examination is limited by involuntary motion artifact. Alignment and Curvature: Mild levoconvex scoliotic curvature is noted. Minimal retrolisthesis can be seen at L1-L2. Bone Marrow: A T11 fractures again seen, with 50-60% loss of height centrally. There is mild abnormal STIR signal seen within this vertebral body. There is also increased STIR signal seen along the superior endplate of T12, with 10% loss of height centrally. At L2 fracture is seen, which is stable from the prior CT without abnormal STIR signal. Marrow is of normal overall signal. Note is made of fatty metaplasia of the sacrum and the iliac bones. Spinal Cord: Conus medullaris terminates at the L1 level. Visualized cord demonstrates normal signal and size. Paraspinous Soft Tissues: No paravertebral masses. T12-L1: Normal appearance. L1-L2: Mild loss of disc height is seen. Loss of disc signal is seen. Reactive marrow endplate changes are seen posteriorly, which are hyperintense on T1-weighted and T2-weighted imaging and most consistent with fatty metaplasia (Modic type II changes). Moderate generalized disc bulge is seen. There is moderate right-sided and gjbw-[id number]-tzhpfgin left-sided neural foraminal narrowing. Mild central canal narrowing is seen. L2-L3: Mild to moderate loss of disc height is seen. There is loss of disc signal. Mild to moderate disc bulge is seen. There is a superimposed central disc protrusion. Mild facet joint hypertrophy is seen. Moderate bilateral neural foraminal narrowing is seen. Moderate central canal narrowing is seen. L3-L4: Moderate loss of disc height is seen. Loss of disc signal is seen. Reactive marrow endplate changes are seen posteriorly, which are hyperintense on T1- weighted and T2-weighted imaging and most consistent with fatty metaplasia (Modic type II changes). Moderate generalized disc bulge is seen. Mild to moderate facet hypertrophy is seen. There is [id number] right-sided and moderate left-sided neural foraminal narrowing. Moderate central canal narrowing is seen. L4-L5: Moderate loss of disc height is seen. Loss of disc signal is seen. Moderate generalized disc bulge is seen. There is a superimposed central disc protrusion. Moderate facet joint hypertrophy is seen. Associated hypertrophy of the ligamentum flavum can be seen. There is at least moderate bilateral neural foraminal narrowing. Moderate central canal narrowing is seen. L5-S1: The disc height is well-preserved. Loss of disc signal is seen at this level. Mild generalized disc bulge is seen. Moderate facet joint hypertrophy is seen. There is [id number] right-sided and mild left-sided neural foraminal narrowing. Mild central canal narrowing is seen. IMPRESSION: Multiple levels of lumbar spine degenerative change can be seen. Mild levoconvex scoliotic curvature is noted. Subacute fractures can be seen of T11 and T12. There is a remote L2 fracture. Fatty metaplasia noted of the sacrum and the iliac bones. Please correlate with prior patient history, including regional radiation treatment. Dictated by: Jesús Saini M.D. on 02/16/2025 at 15:20 Approved by: Jesús Saini M.D. on 02/16/2025 at 15:27
[2025-02-16 13:20] LABS: Cholesterol 130 mg/dL (140-199); HDL Cholesterol 56 mg/dL (40-60); Triglycerides 76 mg/dL (35-150)
[2025-02-16 14:12] LABS: Vitamin B12 554 pg/mL (239-931)
[2025-02-16 14:34] LABS: HEMOLYSIS < 15 (0-50); Iron 36 ug/dL (49-181)
[2025-02-16 14:44] LABS: Percent Iron Saturation 12 % (20-50); Total Iron Binding Capacity 301 ug/dL (261-462); Transferrin 240 mg/dL (206-381)
== END ==
PROVIDERS: PCP Family Medicine; Referring Provider Family Medicine; Visit Provider Family Medicine
DX: M47.27 Other spondylosis with radiculopathy, lumbosacral region (principal); M47.26 Other spondylosis with radiculopathy, lumbar region; M80.08XA Age-related osteoporosis with current pathological fracture, vertebra(e), initial encounter for fracture; S22.080A Wedge compression fracture of T11-T12 vertebra, initial encounter for closed fracture; M41.9 Scoliosis, unspecified; M48.00 Spinal stenosis, site unspecified; D64.9 Anemia, unspecified; Z13.6 Encounter for screening for cardiovascular disorders; R60.0 Localized edema; R06.02 Shortness of breath; R29.898 Other symptoms and signs involving the musculoskeletal system; R53.1 Weakness
CPT/HCPCS: 36415; 72148; 77080; 80061; 82607; 83540; 83550; 85025

== ENCOUNTER → 2025-03-30 13:07 | Outpatient (CLI) | payer MEDICARE, OTHER, SELFPAY ==
[2025-03-30 18:50] LABS: Add Manual Diff / Slide Review NO; Hematocrit 34.6 % (41-53); Hemoglobin 11.7 g/dL (13.5-17.5); Lymphocytes Absolute Auto 2000 /uL (1100-4500); Mean Corpuscular HGB Conc 33.9 % (30-36); Mean Corpuscular Hemoglobin 31.4 PG (26-34); Mean Corpuscular Volume 92.7 fL (80-100); Platelet Count 239 X10^3/uL (150-400)
[2025-03-30 19:03] LABS: Blood Urea Nitrogen 18 mg/dL (9-20); Calcium 9.0 mg/dL (8.4-10.2); Carbon Dioxide 31 mmol/L (22-32); Chloride 96 mmol/L (98-107); Estimated Glomerular Filt Rate > 60 mL/min (>60); Glucose 98 mg/dL (70-99); HEMOLYSIS 17 (0-50); Phosphorous 3.2 mg/dL (2.3-3.7); Potassium 4.5 mmol/L (3.4-5.1); Sodium 133 mmol/L (137-145)
[2025-03-30 19:05] LABS: HEMOLYSIS 24 (0-50); Iron 82 ug/dL (49-181)
[2025-03-30 19:19] LABS: Vitamin D 25 Hydroxy (D3) 81.5 ng/mL (30.0-100.0)
[2025-03-30 19:23] LABS: Percent Iron Saturation 27 % (20-50); Total Iron Binding Capacity 299 ug/dL (261-462); Transferrin 246 mg/dL (206-381)
== END ==
PROVIDERS: PCP Family Medicine; Visit Provider Family Medicine
DX: D64.9 Anemia, unspecified (principal); E55.9 Vitamin D deficiency, unspecified; Z51.81 Encounter for therapeutic drug level monitoring; Z79.83 Long term (current) use of bisphosphonates
CPT/HCPCS: 80048; 82306; 83540; 83550; 84100; 85025

== ENCOUNTER → 2025-04-21 06:41 | Outpatient (CLI) | payer MEDICARE, OTHER, SELFPAY ==
[2025-04-22 22:18] LABS: Clostridium Difficile Tox PCR Negative for C. diff (Negative)
[2025-04-24 12:36] LABS: Salmonella/Shigella Screen Final report (.)
[2025-04-24 14:36] LABS: E coli Shiga Toxin EIA Negative (Negative)
== END ==
LOC: LAB 07-08 06:41
PROVIDERS: PCP Family Medicine; Referring Provider Physician Assistant Medical; Visit Provider Physician Assistant Medical
DX: R19.7 Diarrhea, unspecified (principal)
CPT/HCPCS: 87045; 87177; 87493